=== PATIENT | female | born 1990 | race Caucasian/White ===

== ENCOUNTER 2016-10-12 10:47 | Emergency (ER) | payer OTHER ==
[2016-10-12 11:13] VITALS: TEMP 98.6
[2016-10-12] MEDS ORDERED: IBUPROFEN 600 MG TAB PO ONE (11:30)
--- NOTE | 2016-10-12 11:38 | EDPHY ---
H & P Stated Complaint: L wrist/hand injury last pm, fell of skateboard Time Seen by Provider: 10/12/16 11:38 HPI/ROS: CHIEF COMPLAINT: HISTORY OF PRESENT ILLNESS: 26-year-old [id number] female complaining of acute left wrist painAfter she fell off her skateboard onto her outstretched left hand last evening complaining of pain to the distal radius and thenar eminence. PRIMARY CARE PROVIDER: REVIEW OF SYSTEMS: A ten point review of systems was performed and is negative with the exception of the items mentioned in the HPI PHYSICAL EXAM (Prior to examination, patient consented to physical exam, hands were washed and my usual and customary physical exam procedures followed) 1) GENERAL: Well-developed, well-nourished, alert and oriented. Appears to be in no acute distress. 2) HEAD: Normocephalic 3) HEENT: Pupils equal, round, reactive to light bilaterally. 4) LUNGS: Breathing comfortably. 5) MUSCULOSKELETAL: Soft compartments. Normal coloration. Tender to palpation distal radius and thenar eminence. Positive snuffbox pain. 6) SKIN: intact 7) VASCULAR: pulses and cap refill present are brisk 8) NEUROLOGIC: Radial, ulnar, median nerve function intact with no deficits appreciated on exam DIFFERENTIAL DIAGNOSIS: in no particular order including but not limited to fracture, sprain, compartment syndrome Procedure: Splint A Velcro thumb spica splint was applied by ER microbiological lab technician. After application of the splint I returned and re-examined the patient. The splint was adequately immobilizing the joint and distal to the splint the patient's circulation and sensation were intact. Patient shows no signs of compartment syndrome. Was given orthopedic precautions. - Personal History LMP (Females 10-55): 1-7 Days Ago Current Tetanus/Diphtheria Vaccine: Yes Current Tetanus Diphtheria and Acellular Pertussis (TDAP): Yes Tetanus Vaccine Date: less than 1 year - Medical/Surgical History Hx Asthma: No Hx Chronic Respiratory Disease: No Hx Diabetes: No Hx Cardiac Disease: No Hx Renal Disease: No Hx Cirrhosis: No Hx Alcoholism: No Hx HIV/AIDS: No Hx Splenectomy or Spleen Trauma: No Other PMH: TUBES IN EARS - Social History Smoking Status: Current some day smoker Constitutional: Initial Vital Signs Temperature (C) 37 C 10/12/16 11:12 Heart Rate 57 L 10/12/16 11:12 Respiratory Rate 18 10/12/16 11:12 Blood Pressure 94/70 L 10/12/16 11:12 O2 Sat (%) 96 10/12/16 11:12 O2 Delivery Mode Room Air Allergies/Adverse Reactions: cefaclor [From Ceclor] Allergy (Verified 10/12/16 11:12) Hives Home Medications: Medication Instructions Recorded Miscellaneous Medical Supply [NO 1 ea MISC AD 01/05/12 HOME MEDS] Medical Decision Making - Diagnostics Imaging Results: Imaging Impressions Hand X-Ray 10/12/16 11:14 Impression: 1. Normal left wrist series. 2. Normal left hand series. Wrist X-Ray 10/12/16 11:14 Impression: 1. Normal left wrist series. 2. Normal left hand series. Images reviewed by myself ED Course/Re-evaluation: Re-evaluation with serial exams. Soft compartments. Doubt compartment syndrome. Neurovascular intact. Given location of her pain , expressed my concerns about possible occult scaphoid and/or other fracture. Recommended splinting orthopedic follow-up which she is agreeable with. Usual and customary orthopedic precautions and instructions provided. - Data Points Medications Given: Discontinued Medications Ibuprofen (Motrin) 600 mg PO EDNOW ONE Stop: 10/12/16 11:31 Last Admin: 10/12/16 11:31 Dose: 600 mg Departure - Departure Disposition: Home, Routine, Self-Care Clinical Impression: Left wrist sprain Qualifiers: Encounter type: initial encounter Qualified Code(s): S63.502A - Unspecified sprain of left wrist, initial encounter Condition: Good Instructions: Wrist Sprain (ED) Additional Instructions: Return to the ER immediately if you experience discoloration, have worsening pain, numbness, tingling, or any other symptoms that concern you. If you received x-rays in the emergency department today, be advised, that ligamentous , tendon, muscular, and other non-bony injury cannot be fully ruled out. Try to keep your affected extremity elevated above the level of your chest, and keep cold packs on the affected area, for the next 48 hours. Referrals: iTesha Molina MD [Medical Doctor] - 2-3 days without fail
[2016-10-12 12:31] VITALS: BP 112/64; PULSE 78; RESP 16; O2SAT 95
== END 2016-10-12 12:30 | disposition home or self-care (01) ==
DX: S63.502A Unspecified sprain of left wrist, initial encounter (principal); F17.200 Nicotine dependence, unspecified, uncomplicated; V00.131A Fall from skateboard, initial encounter; Y92.89 Other specified places as the place of occurrence of the external cause; Y99.8 Other external cause status; Y93.51 Activity, roller skating (inline) and skateboarding
CPT/HCPCS: L3807

== ENCOUNTER 2017-01-01 22:01 | Emergency (ER) | payer OTHER ==
[2017-01-01 22:10] VITALS: O2SAT 95
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
[2017-01-02] MEDS ORDERED: OXYCODONE/APAP 5/325MG PREPACK#4 BTL TAKEHOME ONE (00:36)
[2017-01-02 00:52] VITALS: BP 112/65; PULSE 88; RESP 16; TEMP 97.9
== END 2017-01-02 00:51 | disposition home or self-care (01) ==
PROC: 0HQDXZZ Repair Right Lower Arm Skin, External Approach (ICD-10-PCS; principal; 2017-01-01)
DX: S66.921A Laceration of unspecified muscle, fascia and tendon at wrist and hand level, right hand, initial encounter (principal); F17.200 Nicotine dependence, unspecified, uncomplicated; W25.XXXA Contact with sharp glass, initial encounter; Y99.8 Other external cause status; Y93.89 Activity, other specified
CPT/HCPCS: L3908

== ENCOUNTER 2017-05-19 18:39 | Emergency (ER) | payer OTHER ==
[2017-05-19 18:43] VITALS: BP 152/115; PULSE 91; RESP 20; TEMP 97.9; O2SAT 100
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
== END 2017-05-19 19:28 ==
DX: S63.92XA Sprain of unspecified part of left wrist and hand, initial encounter (principal); Y09 Assault by unspecified means

== ENCOUNTER 2017-05-21 15:52 | Emergency (ER) | payer OTHER ==
[2017-05-21 16:04] VITALS: BP 132/82; PULSE 72; RESP 16; TEMP 98.4; O2SAT 96
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
== END 2017-05-21 16:23 | disposition home or self-care (01) ==
LOC: CED 15:52
DX: S69.92XD Unspecified injury of left wrist, hand and finger(s), subsequent encounter (principal); S40.021D Contusion of right upper arm, subsequent encounter; F17.200 Nicotine dependence, unspecified, uncomplicated; X58.XXXD Exposure to other specified factors, subsequent encounter